=== PATIENT | male | born 1945 | race Caucasian/White ===

== ENCOUNTER → 2016-12-29 | Outpatient (CLI) | payer MEDICARE ==
[~2016-12-29] MED LIST: ASPI-COR81 M1 PO; DAYPRO600 M1 PO; FISH OIL 10001000 MG PO; GABAPENTIN800 MG PO; GLYBURIDE5 MG PO; HUMALOG 751 UNIT/0.0 SC; HYDROCODONE BIT1 T11 PO; IBU-8800 MG PO; INDOMETHACIN50 MG PO; LANTUS100 U/ML SC; Lopressor25 MG PO; METFORMIN500 MG PO; METOPROLOL TART50 M1 PO; OMEPRAZOLE D/R20 MG PO; SYNTHROID0.075 MG PO; TADALAFIL; TERAZOSIN5 MG PO; TYLENOL EXTRA500 M1 PO; TYLENOL EXTRA500 MG PO; VICODIN 500 MG-1 TAB PO; ZOCOR10 MG PO; ZOCOR20 MG PO
== END | disposition home or self-care (01) ==
LOC: RAD 11:38
DX: M47.896 Other spondylosis, lumbar region (principal); M48.56XA Collapsed vertebra, not elsewhere classified, lumbar region, initial encounter for fracture; M48.07 Spinal stenosis, lumbosacral region; M12.88 Other specific arthropathies, not elsewhere classified, other specified site

== ENCOUNTER 2018-10-07 09:53 | Emergency (ER) | payer OTHER, MEDICARE ==
--- NOTE | ~2018-10-07 | EKG ---
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
[2018-10-07 10:20] LABS: BASO # 0.1 10*3/uL (0.0-0.1); BASO % 0.8 % (0.0-1.0); EOS # 0.2 10*3/uL (0.0-0.4); EOS % 3.6 % (1.0-4.0); HEMATOCRIT 42.7 % (42.0-52.0); HEMOGLOBIN 14.9 g/dl (14.0-18.0); LYMPH # 1.5 10*3/uL (1.3-4.4); LYMPH % 24.4 % (27.0-41.0); MEAN CELL VOLUME 92.2 fl (80.0-94.0); MEAN CORPUSCULAR HGB 32.2 pg (27.0-31.0); MEAN CORPUSCULAR HGB CONC 34.9 g/dl (33.0-37.0); MEAN PLATELET VOLUME 9.2 fl (9.6-12.3); MONO # 0.5 10*3/uL (0.1-1.0); MONO % 8.8 % (3.0-9.0); NEUT # 3.7 10*3/uL (2.3-7.9); NEUT % 62.1 % (47.0-73.0); PLATELET COUNT AUTOMATED 137 10*3/uL (130-400); RED BLOOD COUNT 4.63 10*6/uL (4.50-5.90); RED CELL DISTRI WIDTH 12.4 % (0-14.5)
[2018-10-07 10:30] LABS: ALKALINE PHOSPHATASE 76 U/L (45-117); BUN 19 mg/dl (7-24); CHLORIDE 104 mmol/L (98-107); CREATININE 1.06 mg/dL (0.70-1.30); SGOT/AST 17 IU/L (3-35); SGPT/ALT 24 U/L (12-78); SODIUM 138 mmol/L (136-145); TOTAL PROTEIN 7.3 gm/dL (6.4-8.2)
[2018-10-07 10:31] LABS: TROPONIN I < 0.015 ng/ml (<0.045)
[2018-10-07 11:29] LABS: ACT PARTIAL THROMBO TIME 23.5 SECONDS (20.8-31.5)
== END 2018-10-07 13:29 | disposition home or self-care (01) ==
LOC: ED 09:53
PROVIDERS: Emergency Medicine
DX: I48.91 Unspecified atrial fibrillation (principal); Z88.8 Allergy status to other drugs, medicaments and biological substances; Z79.899 Other long term (current) drug therapy

== ENCOUNTER → 2018-10-14 | Outpatient (CLI) | payer OTHER, MEDICARE | END | disposition home or self-care (01) | LOC: CT 13:58 | DX: I25.10 Atherosclerotic heart disease of native coronary artery without angina pectoris (principal); J44.9 Chronic obstructive pulmonary disease, unspecified ==

== ENCOUNTER 2020-08-29 16:05 | Inpatient (IN) | payer MEDICARE ==
[~2020-08-29] VITALS: Ht 168 cm; Wt 72.6 kg
[~2020-08-29 16:05] MED LIST changes: -IBU-8800 MG PO; +LANTUS SOL100 UNIT/1 SC; +Motrin,Rufen800 MG PO; -SYNTHROID0.075 MG PO; +Synthroid,Lev100 MCG PO
[2020-08-29 16:46] VITALS: BP 131/67
[2020-08-29 17:39] LABS: BASO % 0.2 % (0.0-1.0); LYMPH # 1.2 10*3/uL (1.3-4.4); LYMPH % 22.9 % (27.0-41.0); MEAN CELL VOLUME 92.3 fl (80.0-94.0); MEAN CORPUSCULAR HGB CONC 33.5 g/dl (33.0-37.0); MEAN PLATELET VOLUME 8.9 fl (9.6-12.3); MONO # 0.5 10*3/uL (0.1-1.0); MONO % 9.4 % (3.0-9.0); NEUT # 3.5 10*3/uL (2.3-7.9); NEUT % 67.1 % (47.0-73.0); PLATELET COUNT AUTOMATED 145 10*3/uL (130-400); RED CELL DISTRI WIDTH 12.1 % (0-14.5); WHITE BLOOD COUNT 5.2 10*3/uL (4.8-10.8)
[2020-08-29 17:52] LABS: ACT PARTIAL THROMBO TIME 29.8 SECONDS (20.0-32.1)
[2020-08-29 18:13] LABS: ALBUMIN 3.5 gm/dl (3.1-4.5); ALKALINE PHOSPHATASE 72 U/L (45-117); BUN 32 mg/dl (7-24); CHLORIDE 101 mmol/L (98-107); CREATININE 1.32 mg/dL (0.70-1.30); LIPASE 155 U/L (73-393); POTASSIUM 3.9 mmol/L (3.5-5.1); SGOT/AST 32 IU/L (3-35); SGPT/ALT 26 U/L (12-78); SODIUM 137 mmol/L (136-145); TOTAL PROTEIN 7.3 gm/dL (6.4-8.2)
[2020-08-29 18:20] VITALS: BP 143/71
[2020-08-29 19:18] VITALS: BP 111/64
[2020-08-29 23:13] VITALS: BP 89/53
[2020-08-30] VITALS (7 sets, daily range): BP systolic 92–116; BP diastolic 31–68
[2020-08-30 05:42] LABS: BUN 37 mg/dl (7-24); CHLORIDE 106 mmol/L (98-107); CHOLESTEROL 65 mg/dL (<200); CREATININE 1.22 mg/dL (0.70-1.30); HDL CHOLESTEROL 27 mg/dl (40-60); LDL CHOLESTEROL 23 mg/dL (9-159); POTASSIUM 4.2 mmol/L (3.5-5.1); SODIUM 140 mmol/L (136-145); TRIGLYCERIDES 75 mg/dl (<150); VLDL CHOLESTEROL 15 mg/dL (6-40)
[2020-08-30 05:50] LABS: FREE T4 1.29 ng/dl (0.76-1.46)
[2020-08-30 06:27] LABS: BASO % 0.2 % (0.0-1.0); HEMATOCRIT 47.4 % (42.0-52.0); LYMPH % 24.5 % (27.0-41.0); MEAN CELL VOLUME 94.2 fl (80.0-94.0); MEAN CORPUSCULAR HGB 30.6 pg (27.0-31.0); MEAN CORPUSCULAR HGB CONC 32.5 g/dl (33.0-37.0); MEAN PLATELET VOLUME 9.7 fl (9.6-12.3); MONO # 0.3 10*3/uL (0.1-1.0); MONO % 5.9 % (3.0-9.0); NEUT # 2.9 10*3/uL (2.3-7.9); NEUT % 68.9 % (47.0-73.0); PLATELET COUNT AUTOMATED 137 10*3/uL (130-400); RED BLOOD COUNT 5.03 10*6/uL (4.50-5.90); RED CELL DISTRI WIDTH 12.4 % (0-14.5); WHITE BLOOD COUNT 4.2 10*3/uL (4.8-10.8)
[2020-08-30 07:21] LABS: VITAMIN D, 25-HYDROXY 43.9 ng/mL (30-100)
[2020-08-31] VITALS: BP 127/62
[2020-08-31 06:24] LABS: HEMATOCRIT 43.9 % (42.0-52.0); LYMPH % 10.3 % (27.0-41.0); MEAN CELL VOLUME 91.3 fl (80.0-94.0); MEAN CORPUSCULAR HGB 31.2 pg (27.0-31.0); MEAN CORPUSCULAR HGB CONC 34.2 g/dl (33.0-37.0); MEAN PLATELET VOLUME 9.1 fl (9.6-12.3); MONO # 0.4 10*3/uL (0.1-1.0); NEUT # 8.2 10*3/uL (2.3-7.9); NEUT % 85.3 % (47.0-73.0); PLATELET COUNT AUTOMATED 145 10*3/uL (130-400); RED BLOOD COUNT 4.81 10*6/uL (4.50-5.90); RED CELL DISTRI WIDTH 11.9 % (0-14.5); WHITE BLOOD COUNT 9.6 10*3/uL (4.8-10.8)
[2020-08-31 06:32] LABS: BUN 41 mg/dl (7-24); CHLORIDE 105 mmol/L (98-107); CREATININE 1.21 mg/dL (0.70-1.30); POTASSIUM 3.8 mmol/L (3.5-5.1); SODIUM 139 mmol/L (136-145)
[2020-08-31 06:56] VITALS: BP 136/50
[2020-08-31 08:00] VITALS: BP 110/58
[2020-08-31 12:00] VITALS: BP 119/73
[2020-08-31 16:00] VITALS: BP 105/58
[2020-08-31 20:00] VITALS: BP 132/64
[2020-09-01] VITALS (7 sets, daily range): BP systolic 108–132; BP diastolic 59–79
[2020-09-01 06:04] LABS: HEMATOCRIT 41.3 % (42.0-52.0); LYMPH % 11.6 % (27.0-41.0); MEAN CELL VOLUME 92.6 fl (80.0-94.0); MEAN CORPUSCULAR HGB 31.4 pg (27.0-31.0); MEAN CORPUSCULAR HGB CONC 33.9 g/dl (33.0-37.0); MEAN PLATELET VOLUME 9.4 fl (9.6-12.3); MONO # 0.4 10*3/uL (0.1-1.0); MONO % 4.8 % (3.0-9.0); NEUT # 7.1 10*3/uL (2.3-7.9); NEUT % 82.9 % (47.0-73.0); PLATELET COUNT AUTOMATED 141 10*3/uL (130-400); RED BLOOD COUNT 4.46 10*6/uL (4.50-5.90); RED CELL DISTRI WIDTH 12.2 % (0-14.5); WHITE BLOOD COUNT 8.6 10*3/uL (4.8-10.8)
[2020-09-01 06:13] LABS: ALBUMIN 2.8 gm/dl (3.1-4.5); ALKALINE PHOSPHATASE 60 U/L (45-117); BUN 33 mg/dl (7-24); CHLORIDE 105 mmol/L (98-107); LDH 290 U/L (87-241); POTASSIUM 3.9 mmol/L (3.5-5.1); SGOT/AST 18 IU/L (3-35); SGPT/ALT 18 U/L (12-78); SODIUM 139 mmol/L (136-145)
[2020-09-01] MEDS ORDERED: ASPIRIN LITE C325 MG PO (14:42)
[2020-09-01] MEDS ORDERED: PRINIVIL10 MG PO (14:43)
[2020-09-01] MEDS ORDERED: JARDIANCE25 MG PO (14:44)
[2020-09-01] MEDS ORDERED: TYLENOL EXTRA500 M2 PO (14:45)
[2020-09-01] MEDS ORDERED: SILDENAFIL CIT100 MG PO (14:46)
[2020-09-01] MEDS ORDERED: TERAZOSIN HCL10 M1 PO (14:46)
[2020-09-01] MEDS ORDERED: ZOCOR20 MG PO (14:47)
[2020-09-01] MEDS ORDERED: FLOMAX0.4 MG PO (14:48)
[2020-09-01] MEDS ORDERED: AMLODIPINE BESYL5 MG PO (14:49)
[2020-09-01] MEDS ORDERED: PROVENTIL HFA6.7 GM INH (14:50)
[2020-09-01] MEDS ORDERED: NUVIGIL250 MG PO (14:53)
[2020-09-01] MEDS ORDERED: ONGLYZA5 MG PO (14:54)
[2020-09-01] MEDS ORDERED: XYZAL5 M1 PO (14:54)
[2020-09-02] VITALS: BP 113/76
[2020-09-02 06:53] LABS: HEMATOCRIT 41.5 % (42.0-52.0); MEAN CELL VOLUME 92.4 fl (80.0-94.0); MEAN CORPUSCULAR HGB CONC 33.5 g/dl (33.0-37.0); MEAN PLATELET VOLUME 9.5 fl (9.6-12.3); PLATELET COUNT AUTOMATED 141 10*3/uL (130-400); RED BLOOD COUNT 4.49 10*6/uL (4.50-5.90); WHITE BLOOD COUNT 6.4 10*3/uL (4.8-10.8)
[2020-09-02 07:07] LABS: ALBUMIN 2.7 gm/dl (3.1-4.5); ALKALINE PHOSPHATASE 63 U/L (45-117); BUN 29 mg/dl (7-24); CHLORIDE 103 mmol/L (98-107); CREATININE 0.85 mg/dL (0.70-1.30); LDH 277 U/L (87-241); POTASSIUM 4.6 mmol/L (3.5-5.1); SGOT/AST 13 IU/L (3-35); SGPT/ALT 17 U/L (12-78); SODIUM 138 mmol/L (136-145)
[2020-09-02 07:17] LABS: ATYPICAL LYMPHS 2 % (0-0); TOTAL CELLS COUNTED 100 #CELLS
[2020-09-02 07:18] LABS: PLATELET SUFFICIENCY NORMAL (NORMAL)
[2020-09-02 08:20] VITALS: BP 108/70
[2020-09-02 12:00] VITALS: BP 112/50
[2020-09-02 16:45] VITALS: BP 120/90
[2020-09-02 20:00] VITALS: BP 114/58
[2020-09-03] VITALS: BP 127/76
[2020-09-03 06:39] LABS: HEMATOCRIT 40.5 % (42.0-52.0); MEAN CELL VOLUME 92.5 fl (80.0-94.0); MEAN CORPUSCULAR HGB 30.8 pg (27.0-31.0); MEAN CORPUSCULAR HGB CONC 33.3 g/dl (33.0-37.0); MEAN PLATELET VOLUME 9.5 fl (9.6-12.3); PLATELET COUNT AUTOMATED 168 10*3/uL (130-400); RED BLOOD COUNT 4.38 10*6/uL (4.50-5.90); RED CELL DISTRI WIDTH 11.9 % (0-14.5); WHITE BLOOD COUNT 7.3 10*3/uL (4.8-10.8)
[2020-09-03 06:56] LABS: ALBUMIN 2.6 gm/dl (3.1-4.5); ALKALINE PHOSPHATASE 82 U/L (45-117); BUN 29 mg/dl (7-24); CHLORIDE 104 mmol/L (98-107); CREATININE 0.92 mg/dL (0.70-1.30); LDH 253 U/L (87-241); POTASSIUM 4.6 mmol/L (3.5-5.1); SGOT/AST 9 IU/L (3-35); SGPT/ALT 18 U/L (12-78); SODIUM 137 mmol/L (136-145); TOTAL PROTEIN 5.8 gm/dL (6.4-8.2)
[2020-09-03 06:58] LABS: TOTAL CELLS COUNTED 100 #CELLS
[2020-09-03 06:59] LABS: PLATELET SUFFICIENCY NORMAL (NORMAL)
[2020-09-03 08:00] VITALS: BP 106/68
[2020-09-03 12:00] VITALS: BP 121/88
[2020-09-03 16:00] VITALS: BP 132/67
[2020-09-03 20:09] VITALS: BP 149/76
[2020-09-04] VITALS: BP 131/96
[2020-09-04 05:43] LABS: BUN 23 mg/dl (7-24); CHLORIDE 103 mmol/L (98-107); CREATININE 0.82 mg/dL (0.70-1.30); LDH 248 U/L (87-241); POTASSIUM 4.8 mmol/L (3.5-5.1); SODIUM 138 mmol/L (136-145)
[2020-09-04 06:06] LABS: BASO % 0.1 % (0.0-1.0); HEMATOCRIT 41.2 % (42.0-52.0); LYMPH # 1.2 10*3/uL (1.3-4.4); LYMPH % 17.7 % (27.0-41.0); MEAN CORPUSCULAR HGB 30.8 pg (27.0-31.0); MEAN CORPUSCULAR HGB CONC 33.5 g/dl (33.0-37.0); MEAN PLATELET VOLUME 9.6 fl (9.6-12.3); MONO # 0.6 10*3/uL (0.1-1.0); MONO % 8.2 % (3.0-9.0); NEUT % 72.7 % (47.0-73.0); PLATELET COUNT AUTOMATED 183 10*3/uL (130-400); RED BLOOD COUNT 4.48 10*6/uL (4.50-5.90); RED CELL DISTRI WIDTH 11.8 % (0-14.5); WHITE BLOOD COUNT 6.9 10*3/uL (4.8-10.8)
[2020-09-04 08:00] VITALS: BP 144/80
[2020-09-04 08:58] VITALS: BP 136/86
[2020-09-04 12:00] VITALS: BP 117/80
[2020-09-04] MEDS ORDERED: CARDIZEM LA180 MG PO (12:47)
[2020-09-04] MEDS ORDERED: XARE20MG PO (12:47)
[2020-09-04] MEDS ORDERED: DECADRON6 M1 PO (12:47)
== END 2020-09-04 14:40 | disposition home or self-care (01) | DRG 871 ==
LOC: ED 16:05 → EDHOLD 18:54 → 4E 18:54
PROVIDERS: Hospitalist; Internal Medicine; Nurse Practitioner Family; Social Worker Clinical; ADMIT Student in an Organized Health Care Education/Training Program; ATTEND Student in an Organized Health Care Education/Training Program
PROC: XW033E5 Introduction of Remdesivir Anti-infective into Peripheral Vein, Percutaneous Approach, New Technology Group 5 (ICD-10-PCS; principal; 2020-09-02)
DX: A41.9 Sepsis, unspecified organism (principal); U07.1 COVID-19; N17.0 Acute kidney failure with tubular necrosis; J96.00 Acute respiratory failure, unspecified whether with hypoxia or hypercapnia; J12.82 Pneumonia due to coronavirus disease 2019; E03.9 Hypothyroidism, unspecified; K21.9 Gastro-esophageal reflux disease without esophagitis; E11.65 Type 2 diabetes mellitus with hyperglycemia; M1A.9XX0 Chronic gout, unspecified, without tophus (tophi); I10 Essential (primary) hypertension; R79.82 Elevated C-reactive protein (CRP); E80.6 Other disorders of bilirubin metabolism; E78.2 Mixed hyperlipidemia; E78.5 Hyperlipidemia, unspecified; G89.29 Other chronic pain; I48.0 Paroxysmal atrial fibrillation; M54.9 Dorsalgia, unspecified; Z88.8 Allergy status to other drugs, medicaments and biological substances; Z79.82 Long term (current) use of aspirin; Z79.4 Long term (current) use of insulin; Z79.899 Other long term (current) drug therapy; Z79.1 Long term (current) use of non-steroidal anti-inflammatories (NSAID); Z90.49 Acquired absence of other specified parts of digestive tract; Z82.49 Family history of ischemic heart disease and other diseases of the circulatory system

== ENCOUNTER → 2022-09-12 | Outpatient (CLI) | payer MEDICARE ==
[~2022-09-12] MED LIST changes: +ALOGLIPTIN12.5 MG PO; +AMLODIPINE BESYL5 MG PO; +ASPIRIN LITE C325 MG PO; +CARDIZEM LA180 MG PO; +CYMBALTA60 MG PO; +DECADRON6 M1 PO; +FLOMAX0.4 MG PO; +JARDIANCE25 MG PO; +METFORMIN HYD1000 MG PO; +NUVIGIL250 MG PO; +ONGLYZA5 MG PO; +PRINIVIL10 MG PO; +PROSCAR5 M1 PO; +PROVENTIL HFA6.7 GM INH; +SILDENAFIL CIT100 MG PO; +SYMB160 INH; +TERAZOSIN HCL10 M1 PO; +TYLENOL EXTRA500 M2 PO; +VITAMIN D31250 MCG PO; +XARE20MG PO; +XYZAL5 M1 PO
== END | disposition home or self-care (01) ==
LOC: CARD 00:56
PROVIDERS: ATTEND Internal Medicine Cardiovascular Disease
DX: Z01.810 Encounter for preprocedural cardiovascular examination (principal); R93.1 Abnormal findings on diagnostic imaging of heart and coronary circulation; I08.3 Combined rheumatic disorders of mitral, aortic and tricuspid valves; I48.91 Unspecified atrial fibrillation

== ENCOUNTER 2022-10-23 13:13 | Emergency (ER) | payer MEDICARE ==
[~2022-10-23] VITALS: Ht 167.6 cm; Wt 78.0 kg
== END 2022-10-23 17:09 | disposition home or self-care (01) ==
LOC: ED 13:13
DX: S70.11XA Contusion of right thigh, initial encounter (principal); S05.11XA Contusion of eyeball and orbital tissues, right eye, initial encounter; E11.9 Type 2 diabetes mellitus without complications; I10 Essential (primary) hypertension; J45.909 Unspecified asthma, uncomplicated; M10.9 Gout, unspecified; Z88.8 Allergy status to other drugs, medicaments and biological substances; Z90.89 Acquired absence of other organs; Z98.890 Other specified postprocedural states; Z90.49 Acquired absence of other specified parts of digestive tract; W19.XXXA Unspecified fall, initial encounter; Y93.89 Activity, other specified; Y92.89 Other specified places as the place of occurrence of the external cause; Y99.8 Other external cause status

== ENCOUNTER 2023-02-13 03:49 | Emergency (ER) | payer MEDICARE ==
[~2023-02-13] VITALS: Ht 177.8 cm; Wt 76.0 kg
[2023-02-13 04:29] LABS: ABG BASE EXCESS -0.7 mmol/L (-2.0-2.0); ARTERIAL BLOOD GAS PH 7.529 (7.35-7.45); ARTERIAL BLOOD GAS PO2 76.7 (80-90)
[2023-02-13 05:10] LABS: ACT PARTIAL THROMBO TIME 27.8 SECONDS (20.0-32.1); INTERNATIONAL NORM RATIO 1.1 (2.0-3.5)
[2023-02-13 05:15] LABS: BILIRUBIN Negative (Negative); BLOOD 2+ (Negative); CLARITY Clear (Clear); COLOR Yellow (Yellow); GLUCOSE 3+ (Negative); KETONE 2+ (Negative); LEUKO ESTERASE Negative (Negative); NITRITE Negative (Negative); PH 7.5 (4.5-8.0); SPECIFIC GRAVITY 1.025 (1.001-1.030)
[2023-02-13 05:21] LABS: ALKALINE PHOSPHATASE 84 U/L (46-116); BUN 12 mg/dl (9-23); CHLORIDE 102 mmol/L (98-107); SGPT/ALT 18 U/L (10-49); TOTAL PROTEIN 7.7 gm/dL (6.0-8.0)
[2023-02-13 05:24] LABS: WBC 0-2 wbc/hpf (0-5)
[2023-02-13 05:25] LABS: BACTERIA TRACE; RBC 16-20 rbc/hpf (0-2)
[2023-02-13 06:00] LABS: BASO % 0.4 % (0.0-1.0); HEMATOCRIT 49.2 % (42.0-52.0); LYMPH # 1.9 10*3/uL (1.3-4.4); LYMPH % 18.1 % (27.0-41.0); MEAN CELL VOLUME 92.5 fl (80.0-94.0); MEAN CORPUSCULAR HGB 32.3 pg (27.0-31.0); MEAN PLATELET VOLUME 9.9 fl (9.6-12.3); MONO # 0.5 10*3/uL (0.1-1.0); NEUT # 7.7 10*3/uL (2.3-7.9); NEUT % 74.7 % (47.0-73.0); PLATELET COUNT AUTOMATED 171 10*3/uL (130-400); RED BLOOD COUNT 5.32 10*6/uL (4.50-5.90); WHITE BLOOD COUNT 10.3 10*3/uL (4.8-10.8)
== END 2023-02-13 07:09 | disposition short-term general hospital (02) ==
LOC: ED 03:49
PROVIDERS: Emergency Medicine
DX: I62.00 Nontraumatic subdural hemorrhage, unspecified (principal); E11.9 Type 2 diabetes mellitus without complications; I48.91 Unspecified atrial fibrillation; I10 Essential (primary) hypertension; M10.9 Gout, unspecified; J45.909 Unspecified asthma, uncomplicated; Z88.8 Allergy status to other drugs, medicaments and biological substances; Z90.49 Acquired absence of other specified parts of digestive tract; Z90.89 Acquired absence of other organs; Z98.890 Other specified postprocedural states